=== PATIENT | female | born 1980 | race Two or more races ===

== ENCOUNTER 2025-07-02 10:17 | Emergency (ER) | payer BC, SELFPAY ==
[2025-07-02 10:19] VITALS: BP 136/83
--- NOTE | 2025-07-02 11:39 | ED.GENMED ---
History of Present Illness
<Fitz Blanco PA-C - Last Filed: 07/02/25 15:29>
General
Chief Complaint: Dizziness
Time Seen by Provider: 07/02/25 11:13
History of Present Illness
History of Present Illness:
45-year-old female with history of [id number] diabetes presents the emergency department for evaluation of intermittent bouts of dizziness occurring over the past week. 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
this feels different. She reports prior episodes resolved with meclizine and vestibular therapy and are predominantly with movement however current symptoms occur randomly. It sounds as though it is a lightheaded sensation with no vertigo or
vision changes. No obvious provoking or palliating factors. No near-syncope or syncope associated with this. Denies any chest pain or heart palpitations. No recent illnesses. Denies any new medications. Did not try her meclizine for the
current symptoms
Review of Systems
<Fitz Blanco PA-C - Last Filed: 07/02/25 15:29>
Review of Systems
Allergies reviewed?: Yes
All Other Systems: ROS reviewed and negative except as documented in HPI and ROS
Phy Exam
<Fitz Blanco PA-C - Last Filed: 07/02/25 15:29>
Physical Exam
Physical Exam:
GEN: Well appearing, NAD, WDWN
HEENT: Oral mucosa moist, no scleral icterus, no nasal congestion
Cardiac: Regular rate and rhythm, no murmur
Lung: No respiratory distress, no tachypnea lungs clear to auscultation
MSK: No gross deformity or injuries
Skin: Good color, no pallor or jaundice, no rashes
Neuro: AO x3; CN II-XII grossly intact. BUE strength 5/5 in all mariee, sensation intact and symmetric. BLE strength 5/5 in all mariee, sensation intact and symmetric
Psych: Calm, cooperative
Course
<Fitz Blanco PA-C - Last Filed: 07/02/25 15:29>
Orders/Labs/Results
Orders:
Orders
07/02/25 11:39
Test Result ONCE
07/02/25 11:40
Electrocardiogram (*1) Urgent
Reason for Study: Vertigo / Dizzy
EKG- Treatment ONCE
07/02/25 11:50
Complete Blood Count/With Diff Urgent
Comprehensive Metabolic Panel Urgent
HCG, Serum Qualitative Screen Urgent
Abnormal Lab Results
07/02/25
11:50
MCHC 32.5 L g/dL
(33.0-37.0)
MPV 11.1 H fL
(7.4-10.4)
Absolute Neuts (auto) 6.6 H 10^3/uL
(1.4-6.5)
Neutrophils % 76.1 H %
(42.2-75.2)
Lymphocytes % 18.8 L %
(20.5-51.1)
Creatinine 0.5 L mg/dL
(0.6-1.0)
Glucose 121 H mg/dl
(70-99)
07/02/25 11:50
07/02/25 11:50
Vital Signs
Initial and Last Documented VS:
Initial Vital Signs
Temp Pulse Resp BP Pulse Ox
98.6 F 91 18 136/83 99
07/02/25 10:19 07/02/25 10:19 07/02/25 10:19 07/02/25 10:19 07/02/25 10:19
Last Documented Vital Signs
Temp Pulse Resp BP Pulse Ox
98.6 F 91 18 100/58 97
07/02/25 10:19 07/02/25 10:19 07/02/25 10:19 07/02/25 13:00 07/02/25 13:30
<Sterling Abebe MD - Last Filed: 07/02/25 14:44>
Orders/Labs/Results
Orders:
Orders
07/02/25 11:39
Test Result ONCE
07/02/25 11:40
Electrocardiogram (*1) Urgent
Reason for Study: Vertigo / Dizzy
EKG- Treatment ONCE
07/02/25 11:50
Complete Blood Count/With Diff Urgent
Comprehensive Metabolic Panel Urgent
HCG, Serum Qualitative Screen Urgent
Abnormal Lab Results
07/02/25
11:50
MCHC 32.5 L g/dL
(33.0-37.0)
MPV 11.1 H fL
(7.4-10.4)
Absolute Neuts (auto) 6.6 H 10^3/uL
(1.4-6.5)
Neutrophils % 76.1 H %
(42.2-75.2)
Lymphocytes % 18.8 L %
(20.5-51.1)
Creatinine 0.5 L mg/dL
(0.6-1.0)
Glucose 121 H mg/dl
(70-99)
07/02/25 11:50
07/02/25 11:50
Vital Signs
Initial and Last Documented VS:
Initial Vital Signs
Temp Pulse Resp BP Pulse Ox
98.6 F 91 18 136/83 99
07/02/25 10:19 07/02/25 10:19 07/02/25 10:19 07/02/25 10:19 07/02/25 10:19
Last Documented Vital Signs
Temp Pulse Resp BP Pulse Ox
98.6 F 91 18 100/58 97
07/02/25 10:19 07/02/25 10:19 07/02/25 10:19 07/02/25 13:00 07/02/25 13:30
<Fitz Blanco PA-C - Last Filed: 07/02/25 15:29>
MDM/Problems Addressed
MDM/Problems Addressed:
Given the random unprovoked episodes of brief dizziness this does give concern for possible cardiac etiology thus recommend cardiology evaluation for possible Holter monitor. Otherwise patient is suitable for discharge home given normal workup
here. No clinical signs or symptoms of neurologic dysfunction at this time that would warrant CT of the head
<Fitz Blanco PA-C - Last Filed: 07/02/25 15:29>
Comment
Comment:
EKG independently interpreted by me shows normal sinus rhythm with no ST changes concerning for ischemia, normal QT interval
*Pulse Oximetry
SaO2: 99
Oxygen Mode of Delivery: Room air
Patient hypoxic: no
*Critical Care Note
Total Time (30-74mins, 75-104mins- exclusive of procedures): Not Applicable
ED Attending Note
<Fitz Blanco PA-C - Last Filed: 07/02/25 15:29>
-
Portions of this chart may have been created with voice recognition software.� Occasional wrong word or��sound alike� substitutions may have occurred due to the inherent limitations of voice recognition software.
<Sterling Abebe MD - Last Filed: 07/02/25 14:44>
ED Attending Note
Patient seen and examined by attending physician: Yes
I performed the substantive portion of visit, reviewed & personally made and approve the management plan that is documented in note by myself or KIRILL.: Yes
ED Attending Note:
45-year-old female: 6 days ago had a very brief near syncopal episode at her desk. Lasted a few seconds. No chest pain shortness of breath headache or other symptoms. Yesterday she had an episode again that lasted seconds that did not feel like
vertigo or syncope or near syncope. She cannot be more specifics but states she felt off for a few seconds. This recurred last evening. She has a history of vertigo however this feels different. She has been asymptomatic today.
On exam patient is nontoxic no distress. Normocephalic atraumatic. Speech is normal. Cranial nerves II through XII intact. [id number] normal. Lungs are clear and equal. Heart regular rate and rhythm no murmur. Abdomen soft and nontender.
Her gait is normal Romberg is negative.
Patient's labs are within normal limits EKG is stable
Patient with a very brief near syncopal episode 6 days ago and 2 episodes, nondiagnostic and description yesterday each lasting seconds. Highly doubt acute neurologic issue. Highly doubt significant cardiac arrhythmia. Her exam and workup are
unremarkable. Feel radiologic testing at this time would not be of benefit. Plan would be to follow-up with cardiology for possible Holter monitor testing follow-up with primary care. To consider outpatient MRI for completeness. No indication
for admission
Discharge Plan
Departure
Patient Disposition: Home (Routine Discharge)
Date of Disposition: 07/02/25
Time of Disposition: 13:42
Patient with high blood pressure during this ER visit?: No
Discharge Problem:
Dizziness
Instructions: Dizziness
Prescriptions:
No Action
meclizine 25 MG tablet
25 mg PO Q8HPRN PRN (Reason: vertigo) Qty: 20 0RF
Referrals:
Ruben Woodruff, DO [Active, Cardiology]
Activity Restrictions/Additional Instructions:
Follow up with cardiology to discuss traffic monitor specialist
Discuss the utility of a brain MRI with your primary doctor
Interventions
Interventions:
*Risk Screen - Suicide Last Done: 07/02/25 10:19
*General Assessment Last Done: 07/02/25 11:52
*Neglect/Abuse Screening Last Done: 07/02/25 11:52
*ED- Fall Risk Assessment Last Done: 07/02/25 11:52
*ED COVID-19 Vaccine History Last Done: 07/02/25 11:52
*ED Influenza Vaccine History Last Done: 07/02/25 11:52
*Nursing Disposition Last Done: 07/02/25 14:25
ED- Neurological Assessment Last Done: 07/02/25 11:53
ED- Cardiac Assessment Last Done: 07/02/25 14:25
ED Swallowing Screen Last Done: 07/02/25 12:19
Discharge Date and Time
Discharge Date/Time: 07/02/25 14:25
Print Language: TURKISH
[2025-07-02 11:46] VITALS: BP 107/59
[2025-07-02 11:51] VITALS: BMI 28.3
[2025-07-02 12:00] VITALS: BP 115/61
[2025-07-02 12:02] LABS: Hematocrit 38.8 % (37.0-47.0); Hemoglobin 12.6 g/dL (12.0-16.0); Mean Corp Hgb Conc. 32.5 g/dL (33.0-37.0); Mean Corpuscular Volume 84.3 fL (81.0-99.0); Nucleated Red Blood Cells % 0 %; Platelet Count 282 10^3/uL (130-400); Red Cell Dist. Width 14.0 % (11.5-14.5)
[2025-07-02 12:12] LABS: HCG, Serum Qualitative Screen Negative
[2025-07-02 12:19] LABS: ALT (SGPT) 21 U/L (0-35); AST (SGOT) 19 U/L (14-36); Albumin 4.7 g/dl (3.5-5.0); Alkaline Phosphatase 70 U/L (38-126); Blood Urea Nitrogen 13 mg/dl (7-17); Calcium 9.6 mg/dl (8.4-10.2); Carbon Dioxide 25 mmol/L (22-30); Chloride 102 mmol/L (98-107); Estimated Creatinine Clearance 94 ml/min; Glucose 121 mg/dl (70-99); Potassium 4.0 mmol/L (3.5-5.1); Sodium 137 mmol/L (135-145); Total Protein 7.8 g/dl (6.3-8.2); eGFR > 60.00
[2025-07-02 13:00] VITALS: BP 100/58
== END 2025-07-02 14:25 | disposition home or self-care (01) ==
LOC: EMR 10:17
PROVIDERS: Physician Assistant; EMERGENCY PHYSICIAN Emergency Medicine; FAMILY PHYSICIAN Family Medicine
DX: R42 Dizziness and giddiness (principal); E11.9 Type 2 diabetes mellitus without complications; Z79.84 Long term (current) use of oral hypoglycemic drugs
CPT/HCPCS: 99284; 80053; 84703; 85025; 93005